=== PATIENT | male | born 1945 | race Caucasian/White ===

== ENCOUNTER 2021-12-18 08:00 | Outpatient (CLI) | payer MEDICARE | END 2021-12-18 23:59 | disposition home or self-care (01) | LOC: LAB.S 08:00 | PROVIDERS: ATTEND Physician Assistant | DX: U07.1 COVID-19 (principal) ==

== ENCOUNTER 2021-12-27 07:33 | Outpatient (CLI) | payer MEDICARE | END 2021-12-27 07:34 | disposition left against medical advice (07) | LOC: EMS 07:33 | DX: U07.1 COVID-19 (principal); R53.1 Weakness ==

== ENCOUNTER 2021-12-27 08:52 | Emergency (ER) | payer MEDICARE ==
--- OUTSIDE RECORDS SUMMARY | 2021-12-27 09:41 | EXTERNAL MEDICAL SUMMARY RPT | Continuity of Care Document ---
:1945 Author Organization [facility] Address [address] [place] [address] Phone Care Team Providers Name Role Phone PA-C Unavailable Unavailable Allergies No information. Encounters No information. Medications No information. Problems date description facility 20211218 Viral upper respiratory tract [facility] Primary Care & infection Ancillary Services [facility] 20211218 Never smoker [facility] Prim ahsan Care & Ancillary Services [facility] 20211218 Headache [facility] Prim [facility] & [facility] 20211218 Details of drug misuse behavior [facility] & Ancillary Services [facility] 20211218 Acute upper respiratory infections of [facility] Primary Care & unspecified site Ancillary Services [facility] 20211218 Acute upper [facility] infection, [facility] Primary Care & unspecified Ancillary Services [facility] 20211218 Headache, unspecified All 20211218 COVID19 Testing All 20211218 Alcohol use All Results test status date ordered by attending specimen mark e _2018NCoV_COVID-19_Lab unknown 20211218 unknown unknown unknown _Test_Result_Text_ Streptococcus_pyogenes unknown 20211218 unknown unknown unknown _DNA_Presence_in_Throat _by_NAA_with_probe_dete ction Microbial_identificati unknown 20211218 unknown unknown unknown on_kit_rapid_strep_meth od COVID-19_REFERENCE_TES unknown [id number] unknown unknown unknown T T unknown 20211218 unknown unknown unknown Streptococcus_pyogenes unknown 20211218 unknown unknown unknown _DNA_Presence_in_Throat _by_NAA_with_probe_dete ction Microbial_identificati unknown 20211218 unknown unknown unknown on_kit_rapid_strep_meth od facility observation status value reference units lab abnor mal line range code notes Walk-In _2019NCoV_CO unknown POSITIVE unknown _6659 unkn own unknown Clinic VID-19_Lab_Te [address]_Result_[facility] & t_ Ancillary Services [facility] Streptococcu unknown Neg unknown _6048 unknow n unknown Clinic s_pyogenes_DN 9-2 Primary A_Presence_in Care & _Throat_by_NA Ancillary A_with_probe_ Services detection [facility] Microbial_id unknown Neg unknown _3554 unknow n unknown Clinic entification_ Primary kit_rapid_str Care & ep_method Ancillary Services [facility] COVID-19_REF unknown POSITIVE unknown COVID unkn own unknown Clinic ERENCE_TEST 19.REF Primary Care & Ancillary Services [facility] T unknown POSITIVE unknown COVID unknown u nknown Clinic -19 Primary Care & Ancillary Services [facility] All Streptococcu unknown Neg unknown _6048 unknown unknown s_pyogenes_DN 9-2 A_Presence_in _Throat_by_NA A_with_probe_ detection All Microbial_id unknown Neg unknown _3554 unknown unknown entification_ kit_rapid_str ep_method Vital Signs date measurement value source 20211218 weight_standard 140 lb 20211218 weight_metric 63.5 kg 20211218 temperature_standard 98.5 F 20211218 temperature_metric 36.94 C 20211218 respiration_rate 15 /min 20211218 height_standard 70 in 20211218 height_metric 177.8 cm 20211218 heart_rate 88 /min 20211218 BP_systolic 118 mm[Hg] 20211218 BP_diastolic 56 mm[Hg] 20211218 BMI 20.16 kg/m2 20211218 weight_standard 140 lb 20211218 weight_metric 63.5 kg 20211218 temperature_standard 98.5 F 20211218 temperature_metric 36.94 C 20211218 respiration_rate 15 /min 20211218 height_standard 70 in 20211218 height_metric 177.8 cm 20211218 heart_rate 88 /min 20211218 BP_systolic 118 mm[Hg] 20211218 BP_diastolic 56 mm[Hg] 20211218 BMI 20.16 kg/m2
--- NOTE | 2021-12-27 09:49 | ED Physician Documentation ---
PD HPI URI - Stated complaint Stated Complaint: C+ NAUSEA/NO APPETITE - Chief complaint Chief Complaint: Resp - History obtained from History obtained from: Patient, Family - History of Present Illness Timing - onset: How many days ago (12) Timing duration: Days (12) Timing details: Gradual onset (he has had cough and congestion for about 2 weeks, with positive covid test on 8th. Has continued with some cough, which has increased the past few days. Has had worsening sore throat to point of unable to eat nor even sips of water, without severe pain. Poor PO intake for several days or more.), Still present Associated symptoms: Chills, Nasal congestion, Productive cough, NVD (not vomiting per se, but patient says is more that he is spitting up saliva when he tries to eat/drink, due to pain of swallowing.). No: Fever (initially with fever and chills, but those are gone now.) Contributing factors: Sick contact (had contact with COVID, but is almost 2 weeks after initial diagnosis.) Similar symptoms before: Has not had sx before Recently seen: Not recently seen (friend and patient say he has not been to a doctor for 11 years or such. He does not want to be in ER long and is motivated for discharge home after some meds and fluids.) Review of Systems Constitutional: reports: Chills, Myalgias, Fatigue, Weight Loss. denies: Fever Nose: reports: Rhinorrhea / runny nose, Congestion Throat: reports: Sore throat Cardiac: denies: Chest pain / pressure Respiratory: reports: Cough GI: reports: Nausea, Vomiting. denies: Abdominal Pain, Abdominal Swelling, Constipation, Diarrhea : denies: Dysuria, Frequency Musculoskeletal: denies: Neck pain, Back pain, Extremity swelling Neurologic: reports: Generalized weakness (unable to get up out of bed due to weakness the past couple of days.). denies: Near syncope PD PAST MEDICAL HISTORY - Past Medical History Cardiovascular: None Respiratory: None Musculoskeletal: Other (he has had an erosive growth left anterior thigh growing over the past year or more. ) - Present Medications Home Medications: Ambulatory Orders Medication Instructions Recorded Confirmed Albuterol Sulf [Ventolin Hfa 2 - 3 puffs INH Q4HR PRN #1 inhaler 12/27/21 Inhaler] Amox/Clav 875/125 [Augmentin] 1 each PO BID 5 Days #10 tablet 12/27/21 Doxycycline Hyclate 100 mg PO BID 5 Days #10 cap 12/27/21 Fluconazole [Diflucan] 100 mg PO Q3D #3 tablet 12/27/21 Lidocaine Viscous 2% [Xylocaine 5 ml PO Q4H PRN #100 ml 12/27/21 Viscous 2%] Ondansetron Odt [Zofran] 4 mg TL Q6H PRN #10 tablet 12/27/21 - Allergies Allergies/Adverse Reactions: Allergies Allergy/AdvReac Type Severity Reaction Status Date / Time No Known Drug Allergies Allergy Verified 12/27/21 09:20 PD ED PE NORMAL - Vitals Vital signs reviewed: Yes - General General: Alert and oriented X 3, No acute distress. No: Well developed/nourished (frail and thin appearance. ) - HEENT HEENT: No: Moist mucous membranes, Pharynx benign (tongue and pharynx with redness and some white plaque. lips with dry and some peeling. Pain with attemp lala swallowing sip water and drools it back out.) - Neck Neck: Supple, no meningeal sign, No adenopathy - Cardiac Cardiac: No murmur. No: RRR (tachycardic but regular. ) - Respiratory Respiratory: No respiratory distress. No: Clear bilaterally (coarse sounds at base, right especially. ) - Abdomen Abdomen: Soft, Non tender - Back Back: No CVA TTP - Derm Derm: Warm and dry. No: Normal color (pale) - Extremities Extremities: No edema, No calf tenderness / cord, Other (he reluctantly talks about left thigh skin growth and lets me only see top part. Bandaged and I lift part of it down. Large, raised, fungating edge growth with central superficial necrotic tissue. Not sure if goes into muscle. Purulent surface. Odorous c/w necrotic tissue. Size is entire thigh.) - Neuro Neuro: Alert and oriented X 3, No motor deficit, Normal speech Results - Vitals Vitals: Vital Signs - 24 hr 12/27/21 12/27/21 12/27/21 09:16 10:16 12:29 Temperature 36.8 C Heart Rate 125 H 117 H 100 Respiratory 24 20 22 Rate Blood Pressure 134/60 H 127/70 138/64 H O2 Saturation 94 92 99 12/27/21 12/27/21 12/27/21 13:47 14:46 15:42 Temperature Heart Rate 120 H 108 H 74 Respiratory 30 H 22 22 Rate Blood Pressure 150/77 H 108/76 O2 Saturation 100 100 12/27/21 17:53 Temperature 37.1 C Heart Rate 98 Respiratory 22 Rate Blood Pressure 114/82 H O2 Saturation 98 Oxygen O2 Source Room air - Labs Labs: Microbiology 12/27/21 13:23 Wound Culture - Preliminary Leg - Left Laboratory Tests 12/27/21 12/27/21 12/27/21 10:38 10:38 10:38 WBC 18.2 H RBC 4.08 L Hgb 8.7 L Hct 29.2 L MCV 71.6 L MCH 21.3 L MCHC 29.8 L RDW 17.9 H Plt Count 456 H MPV 10.0 Neut # (Auto) 15.9 H Lymph # (Auto) 0.7 L [place] # (Auto) 1.4 H Eos # (Auto) 0.0 Baso # (Auto) 0.0 Absolute Nucleated RBC 0.00 Nucleated RBC % 0.0 Sodium 145 Potassium 3.8 Chloride 105 Carbon Dioxide 26 Anion Gap 14.0 H BUN 35 H Creatinine 0.9 Estimated GFR (MDRD) 82 L Glucose 138 H Calcium 9.6 Magnesium 2.3 Total Bilirubin 0.6 AST 13 ALT 17 Alkaline Phosphatase 72 B-Natriuretic Peptide 33 Total Protein 8.3 H Albumin 2.8 L Globulin 5.5 H Albumin/Globulin Ratio 0.5 L Lipase 24 Nasal Adenovirus (PCR) Nasal B. parapertussis DNA (PCR) Nasal Coronavir 229E PCR Nasal Coronavir HKU1 PCR Nasal Coronavir NL63 PCR Nasal Coronavir OC43 PCR Nasal Enterovir/Rhinovir PCR Nasal Influenza B PCR Nasal Influenza A PCR Nasal Parainfluen 1 PCR Nasal Parainfluen 2 PCR Nasal Parainfluen 3 PCR Nasal Parainfluen 4 PCR Nasal RSV (PCR) Nasal B.pertussis DNA PCR Nasal C.pneumoniae (PCR) [place] Human Metapneumo PCR Nasal M.pneumoniae (PCR) Nasal SARS-CoV-2 (PCR) Group A Strep Rapid 12/27/21 12/27/21 10:38 14:45 WBC RBC Hgb Hct MCV MCH MCHC RDW Plt Count MPV Neut # (Auto) Lymph # (Auto) [place] # (Auto) Eos # (Auto) Baso # (Auto) Absolute Nucleated RBC Nucleated RBC % Sodium Potassium Chloride Carbon Dioxide Anion Gap BUN Creatinine Estimated GFR (MDRD) Glucose Calcium Magnesium Total Bilirubin AST ALT Alkaline Phosphatase B-Natriuretic Peptide Total Protein Albumin Globulin Albumin/Globulin Ratio Lipase Nasal Adenovirus (PCR) NOT DETECTED Nasal B. parapertussis DNA (PCR) NOT DETECTED Nasal Coronavir 229E PCR NOT DETECTED Nasal Coronavir HKU1 PCR NOT DETECTED Nasal Coronavir NL63 PCR NOT DETECTED Nasal Coronavir OC43 PCR NOT DETECTED Nasal Enterovir/Rhinovir PCR NOT DETECTED Nasal Influenza B PCR NOT DETECTED Nasal Influenza A PCR NOT DETECTED Nasal Parainfluen 1 PCR NOT DETECTED Nasal Parainfluen 2 PCR NOT DETECTED Nasal Parainfluen 3 PCR NOT DETECTED Nasal Parainfluen 4 PCR NOT DETECTED Nasal RSV (PCR) NOT DETECTED Nasal B.pertussis DNA PCR NOT DETECTED Nasal C.pneumoniae (PCR) NOT DETECTED [place] Human Metapneumo PCR NOT DETECTED Nasal M.pneumoniae (PCR) NOT DETECTED Nasal SARS-CoV-2 (PCR) DETECTED A Group A Strep Rapid Negative - Rads (name of study) chest xray Radiology: Prelim report reviewed (bilateral opacities right more than left, c/w pneumonia. CT recommended if wish to exclude tumors.), See rad report chest/abd/pelvis CT Radiology: Prelim report reviewed (again demonstrated bilateral pneumonia. No masses. Abd showing no acute process. large rectal stool. ), See rad report PD MEDICAL DECISION MAKING - ED course Complexity details: reviewed results (he is anemic. states the patient has thigh skin lesion that drips blood often, so she believes it is chronic blood loss. ), re-evaluated patient (he is able to take sips of water and then small bites crackers. Mouth feeling less painful. He has some color. He walked down huff with walker. He strongly wants to go home, stating he will not stay in hospital. I feel he is stronger/hydrated enough right now to maybe take care at home.), considered differential (frail, dehydrated. oral sores/redness likely thrush appearing. Has pneumonia. Seem very ill and that was even before he told about his thigh lesion.), d/w patient Departure - Departure Disposition: 01 Home, Self Care Clinical Impression: General weakness, Dehydration, Yeast pharyngitis, Pneumonia, Skin lesion, Odynophagia Condition: Stable Instructions: ED Pneumonia Adult Follow-Up: [facility] [Provider Group] Prescriptions: Albuterol Sulf [Ventolin Hfa Inhaler] 2 - 3 puffs INH Q4HR PRN #1 inhaler PRN Reason: Shortness Of Air/Wheezing Amox/Clav 875/125 [Augmentin] 1 each PO BID 5 Days #10 tablet Fluconazole [Diflucan] 100 mg PO Q3D #3 tablet Doxycycline Hyclate 100 mg PO BID 5 Days #10 cap Lidocaine Viscous 2% [Xylocaine Viscous 2%] 5 ml PO Q4H PRN #100 ml PRN Reason: Pain Ondansetron Odt [Zofran] 4 mg TL Q6H PRN #10 tablet PRN Reason: Nausea / Vomiting Comments: Small frequent fluids and liquid diet initially with good calories such as Ensure or or protein drinks. Your throat is red and irritated and you have had the pain with swallowing. I believe you likely have a yeast pharyngitis (thrush) by the appearance. He also have pneumonia on chest x-ray. Your COVID test is still positive but you think you have likely developed a secondary bacterial pneumonia. We will treat this with Augmentin and doxycycline antibiotics twice daily for the next 5 days. For the throat, use Benadryl liquid every 4-6 hours if needed for discomfort of swallowing. You can add lidocaine numbing medicine to that to help further with the throat pain. Use the albuterol inhaler 2 to 3 puffs 4 times a day regularly for the next week at least. This will try to improve on your breathing. Ondansetron if needed for nausea. Regarding your leg wound, continue with cleaning it normally with soap and water and showers. Keep it dressed as you have been doing. We did do a culture of the area and we will see if it grows a bacteria that needs antibiotics different from what we are using for your pneumonia. Your next step on that would initially be to get a biopsy of it to see the type of tumor growth it is. I gave the number for [facility] in [place] as a starting point. Also call to initiate a new primary care provider. You could try [facility] [place] and their phone number is [phone]. I believe they are taking new patients currently. Recheck if not improved well over the next few days and return if not or worsening. I sent your prescriptions to the [facility] pharmacy here in [place] which should be open until 6 PM today. Discharge Date/Time: 12/27/21 17:45
[2021-12-27] MEDS ORDERED: SODIUM CHLORIDE 0.9% 1,000 ML IV STA ×3 (10:12→12:58)
[2021-12-27] MEDS ORDERED: ONDANSETRON 4 MG/2 ML VIAL IVP STA (10:12)
[2021-12-27] MEDS ORDERED: HYDROmorphone 0.5 MG/0.5 ML SYRINGE IVP STA (10:13)
[2021-12-27] MEDS ORDERED: FLUCONAZOLE 200 MG/100 ML 100 ML IV ONE (10:13)
[2021-12-27] MEDS ORDERED: FAMOTIDINE 20 MG/2 ML VIAL IVP STA (10:13)
[2021-12-27] MEDS ORDERED: diphenhydrAMINE ELIXIR 25 MG/10 ML UDC PO STA (10:16)
--- NOTE | 2021-12-27 10:35 | XRAY Report ---
PROCEDURE: Chest 1 View X-Ray INDICATIONS: chest pain TECHNIQUE: One view of the chest was acquired. COMPARISON: None FINDINGS: Surgical changes and devices: None. Lungs and pleura: Patchy bilateral areas of pulmonary opacities are present most severe in the right base. Mediastinum: Mediastinal contours appear normal. Heart size is normal. Bones and chest wall: No suspicious bony lesions. Overlying soft tissues appear unremarkable. IMPRESSION: Bilateral pulmonary opacities most severe on the right most suggestive of pneumonia. Recommend interv al follow-up after appropriate therapy to document resolution and exclude presence of underlying mass lesions. Reviewed by: Mey Oconnor MD on 12/27/2021 10:34 AM PDT Approved by: Mey Oconnor MD on 12/27/2021 10:34 AM PDT Station ID: [id number]
[2021-12-27 10:46] LABS: BASOPHILS % (AUTO) 0.2 %; HCT - HEMATOCRIT 29.2 % (42.0-52.0); HGB - HEMOGLOBIN 8.7 g/dL (14.0-18.0); LYMPHOCYTES # (AUTO) 0.7 10^3/uL (1.5-3.5); LYMPHOCYTES % (AUTO) 3.6 %; MEAN CORPUSCULAR HEMOGLOBIN 21.3 pg (27.0-31.0); MEAN CORPUSCULAR HGB CONC 29.8 g/dL (32.0-36.0); MEAN CORPUSCULAR VOLUME 71.6 fL (80.0-94.0); MONOCYTES # (AUTO) 1.4 10^3/uL (0.0-1.0); MONOCYTES % (AUTO) 7.9 %; NEUTROPHILS # (AUTO) 15.9 10^3/uL (1.5-6.6); NEUTROPHILS % (AUTO) 87.6 %; PLT - PLATELET COUNT 456 10^3/uL (130-450); RED BLOOD COUNT 4.08 10^6/uL (4.70-6.10); RED CELL DISTRIBUTION WIDTH 17.9 % (12.0-15.0); WHITE BLOOD COUNT 18.2 x10^3/uL (4.8-10.8)
[2021-12-27 10:55] LABS: RAPID STREP SCREEN Negative (Negative)
[2021-12-27 10:59] LABS: ALBUMIN 2.8 g/dL (3.2-5.5); ALBUMIN/GLOBULIN RATIO 0.5 (1.0-2.2); BILIRUBIN,TOTAL 0.6 mg/dL (0.2-1.0); CALCIUM 9.6 mg/dL (8.5-10.3); CREATININE 0.9 mg/dL (0.6-1.2); MAGNESIUM 2.3 mg/dL (1.7-2.8); POTASSIUM 3.8 mmol/L (3.5-5.0); TOTAL PROTEIN 8.3 g/dL (6.7-8.2)
[2021-12-27] MEDS ORDERED: IOVERSOL 320 100 ML VIAL IVP ONE ×2 (11:48→12:23)
--- NOTE | 2021-12-27 12:51 | CT Report ---
PROCEDURE: CHEST W INDICATIONS: cough/dyspnea/ abn chest xray CONTRAST: IV CONTRAST: Optiray 320 ml: 1010 PO CONTRAST: *NO PO CONTRAST TECHNIQUE: After the administration of intravenous contrast, 1 mm axial images were acquired from the pulmonary apices through the posterior costophrenic angles. Axial 5 mm soft tissue kernel reconstructions were performed as well as 8 mm axial MIP and coronal and sagittal 5 mm reformations. For radiation dose reduction, the following was used: automated exposure control, adjustment of mA and/or kV according to patient size. COMPARISON: None. FINDINGS: Image quality: Excellent. Lungs and pleura: Extensive spiculated densities, predominantly right-sided, and mostly in the right lower lobe, but also in the lateral segment of the right middle lobe, and to a lesser extent in the l eft lower lobe likely represent bronchopneumonia. There is more confluent consolidation in the extrem e right lung base There is fluid present in multiple basilar bronchi on the left. Findings likely rep resent evidence of recurrent aspiration pneumonia. No pleural effusions or pneumothorax. Central and peripheral airways are patent and normal in caliber. Mediastinum: Heart size is normal. No pericardial effusion. No mediastinal or hilar adenopathy by size criteria. Thoracic aorta and central pulmonary arteries are normal in size. Esophagus is henry l in caliber. No hiatal hernia. Bones and chest wall: No suspicious bony lesions. No vertebral body compression fractures. No axil bernice or supraclavicular adenopathy by size criteria. The thyroid is normal in size and there are no incidental findings.. Abdomen: Visualized upper abdominal solid organs appear normal. Upper abdominal bowel loops are nor mal in caliber. IMPRESSION: 1. There is bilateral pneumonia, right greater than left, in a pattern consistent with bronchopneumon ia. 2. Fluid present in multiple left-sided bronchial structures is highly suggestive of recurrent aspira tion pneumonia. Comment: Progress films are recommended until clear. CLINICAL RECOMMENDATION STATEMENTS: In patients <35 years with an ITN detected on CT, MRI, or extrathyroidal ultrasound, the Committee re commends further evaluation with dedicated thyroid ultrasound if the nodule is "e1 cm and has no susp icious imaging features, and if the patient has normal life expectancy. In patients "e35 years with an ITN detected on CT, MRI, or extrathyroidal ultrasound, the Committee r ecommends further evaluation with dedicated thyroid ultrasound if the nodule is "e1.5 cm and has no s uspicious imaging features, and if the patient has normal life expectancy. (ACR, 2014) Reviewed by: Calderon Cano MD on 12/27/2021 12:50 PM PDT Approved by: Calderon Cano MD on 12/27/2021 12:50 PM PDT Station ID: [id number]
--- NOTE | 2021-12-27 12:57 | CT Report ---
PROCEDURE: Abdomen/Pelvis W INDICATIONS: upper abd pain/vomiting/unable to swallow CONTRAST: IV CONTRAST: Optiray 320 ml: 1010 PO CONTRAST: *NO PO CONTRAST TECHNIQUE: After the administration of intravenous contrast, 5 mm thick sections acquired from the diaphragms to the symphysis. 5 mm thick coronal and sagittal reformats were acquired. For radiation dose reducti on, the following was used: automated exposure control, adjustment of mA and/or kV according to brooklynn ent size. COMPARISON: CT chest from the same date FINDINGS: Image quality: Excellent. ABDOMEN: Lung bases: Bibasilar pneumonia, right much greater than left. Fluid present in multiple left basilar bronchi suggesting aspiration. Heart size is normal. Solid organs: Liver and spleen are normal in size and enhancement. Gallbladder is unremarkable. Bi liary system is non dilated. Pancreas enhances normally. No adrenal nodules. Kidneys demonstrate n ormal size and enhancement, without hydronephrosis. 2 mm nonobstructing left middle pole renal stone . Peritoneum and bowel: Distended rectum filled with fecal debris. Sigmoid diverticulosis without evide nce of diverticulitis. Nodes and vessels: No retroperitoneal or mesenteric adenopathy by size criteria. Aorta and inferior vena cava are normal in size. Miscellaneous: No ventral hernias. PELVIS: Genitourinary: Bladder wall thickness is normal. Miscellaneous: No inguinal hernias or adenopathy. Bones: No suspicious bony lesions. No vertebral body compression fractures. Lumbar degenerative ch gayla. Right facet hypertrophy at L4-L5 results in severe stenosis of the right side of the canal. Ext ensive multilevel facet arthropathy. IMPRESSION: 1. Bibasilar pneumonia, right much greater than left, likely representing aspiration pneumonia. 2. Large amount of rectal fecal debris. 3. Sigmoid diverticulosis. 4. No evidence of acute abdominal process. 5. Left nephrolithiasis. 6. Incidental note is made of the presence of diffuse lumbar degenerative change with extensive facet arthropathy. Right facet arthropathy at L4-L5 results in severe narrowing of the right side of the s asher canal. Reviewed by: Calderon Cano MD on 12/27/2021 12:55 PM PDT Approved by: Calderon Cano MD on 12/27/2021 12:55 PM PDT Station ID: [id number]
[2021-12-27] MEDS ORDERED: AZITHROMYCIN INJ 500 MG in SODIUM CHLORIDE 0.9% 250 ML IV STA (12:58)
[2021-12-27] MEDS ORDERED: cefTRIAXone 1 GM VIAL IVP STA (12:58)
[2021-12-27] MEDS ORDERED: ALBUTEROL 1 PUFF INH STA (15:21)
[2021-12-27 16:07] LABS: CORONAVIRUS 229E-RESP PCR NOT DETECTED; CORONAVIRUS HKU1-RESP PCR NOT DETECTED; CORONAVIRUS NL63-RESP PCR NOT DETECTED; CORONAVIRUS OC43-RESP PCR NOT DETECTED
[2021-12-27 16:08] LABS: B. PARAPERTUSSIS- RESP PCR PAN NOT DETECTED; B. PERTUSSIS- RESP PCR PANEL NOT DETECTED; C. PNEUMONIAE- RESP PCR PANEL NOT DETECTED; HUMAN METAPNEUMOVIRUS NOT DETECTED; INFLUENZA A- RESP PCR PANEL NOT DETECTED; INFLUENZA B - RESP PCR PANEL NOT DETECTED; M. PNEUMONIAE- RESP PCR PANEL NOT DETECTED; PARAINFLUENZA VIRUS 1 NOT DETECTED; PARAINFLUENZA VIRUS 2 NOT DETECTED; PARAINFLUENZA VIRUS 3 NOT DETECTED; PARAINFLUENZA VIRUS 4 NOT DETECTED; RHINOVIRUS/ENTEROVIRUS NOT DETECTED; RSV- RESP PCR PANEL NOT DETECTED; SARS-CoV-2 -RESP PCR PANEL DETECTED
[2021-12-27 17:55] VITALS: BP 114/82
--- NOTE | 2021-12-30 14:39 | ED Physician Documentation ---
ED Addendum - Addendum Addendum: 12/30/21 14:39 Culture reviewed, doxycycline can probably be discontinued given that the wound culture growing Klebsiella pneumonia a and staff aureus is sensitive to Augmentin and the staff isolate should also be sensitive to Augmentin since it is surprisingly sensitive to penicillin alone. Note to nurse to call patient and discontinue doxycycline.
== END 2021-12-27 17:45 | disposition home or self-care (01) ==
LOC: ED 08:52
DX: U07.1 COVID-19 (principal); J15.0 Pneumonia due to Klebsiella pneumoniae; E86.0 Dehydration; J02.8 Acute pharyngitis due to other specified organisms; R13.10 Dysphagia, unspecified
CPT/HCPCS: 36415; 71045; 71260; 74177; 80053; 83690; 83735; 83880; 85025; 87070; 87077; 87181; 87205; 87430; 87633; 93005; 94640; 96361; 96365; 96366; 96367; 96375; 99283; 99285; A9270; J1170; Q9967

== ENCOUNTER 2022-01-01 10:44 | Emergency (ER) | payer MEDICARE ==
--- OUTSIDE RECORDS SUMMARY | 2022-01-01 11:03 | EXTERNAL MEDICAL SUMMARY RPT | Continuity of Care Document ---
:1945 Author Organization [facility] Address [address] [place] [address] Phone Care Team Providers Name Role Phone PA-C Unavailable Unavailable PA-C Unavailable Unavailable Allergies No information. Encounters No information. Medications date description facility 20220101 fluconazole [facility] Problems date description facility 20220101 Pneumonia, unspecified organism [facility] ab 20220101 Other dysphagia [facility] 20220101 Other and unspecified mycoses [facility] ab 20220101 Never smoker [facility] 20220101 Loss of weight [facility] ab 20220101 Fungal pneumonia [facility] ab 20220101 Dysphagia, unspecified [facility] 20220101 Difficulty swallowing [facility] ab 20220101 Details of drug misuse behavior [facility] 20220101 Anemia, unspecified [facility] 20220101 Anemia [facility] ab 20220101 Alcohol use [facility] ab 20220101 Abnormal weight loss [facility] ab 20211218 Alcohol use [facility] ab 20211218 Viral upper respiratory tract [facility] 20211218 Never smoker [facility] ab 20211218 Details of drug misuse behavior [facility] 20211218 Acute upper respiratory infections of [facility] unspecified site [facility] ab 20211218 Headache, unspecified All 20211218 Headache All 20211218 COVID19 Testing All 20211218 Acute upper respiratory infection, All unspecified Results test status date ordered by attending specimen mark e Hemoglobin_Mass_volume unknown 20220101 unknown unknown unknown _in_Blood hemoglobin_blood unknown 20220101 unknown unknown unknow n _2018NCoV_COVID-19_Lab unknown 20211218 unknown unknown unknown _Test_Result_Text_ Streptococcus_pyogenes unknown 20211218 unknown unknown unknown _DNA_Presence_in_Throat _by_NAA_with_probe_dete ction Microbial_identificati unknown 20211218 unknown unknown unknown on_kit_rapid_strep_meth od COVID-19_REFERENCE_TES unknown 20211218 unknown unknown unknown T T unknown 20211218 unknown unknown unknown _2018NCoV_COVID-19_Lab unknown 20211218 unknown unknown unknown _Test_Result_Text_ Streptococcus_pyogenes unknown 20211218 unknown unknown unknown _DNA_Presence_in_Throat _by_NAA_with_probe_dete ction Microbial_identificati unknown 20211218 unknown unknown unknown on_kit_rapid_strep_meth od COVID19_REFERENCE_TES unknown 20211218 unknown unknown unknown T T unknown 20211218 unknown unknown unknown Streptococcus_pyogenes unknown 20211218 unknown unknown unknown _DNA_Presence_in_Throat _by_NAA_with_probe_dete ction Microbial_identificati unknown 20211218 unknown unknown unknown on_kit_rapid_strep_meth od facility observation status value reference units lab abnor mal line range code notes [facility] Hemoglobin_M unknown 7.9 unknown g/dL _718- unknow n unknown Clinic ass_volume_in 7 Primary [facility] hemoglobin_b unknown 7.9 unknown g/dL _65 unknow n unknown Clinic lood [facility] _2018NCoV_CO unknown POSITIVE unknown _6659 unkn own unknown [...] T unknown POSITIVE unknown COVID unknown u [facility] -19 [facility] _2019NCoV_CO unknown POSITIVE unknown _6659 unkn [...] T unknown POSITIVE unknown COVID unknown u [facility] -19 [facility] Services [...] BP_diastolic 56 mm[Hg] 20211218 BMI 20.16 kg/m2 20220101 weight_standard 116 lb 20220101 weight_metric 52.62 kg 20220101 temperature_standard 97.6 F 20220101 temperature_metric 36.44 C 20220101 respiration_rate 16 /min 20220101 height_standard 70 in 20220101 height_metric 177.8 cm 20220101 heart_rate 122 /min 20220101 BP_systolic 128 mm[Hg] 20220101 BP_diastolic 71 mm[Hg] 20220101 BMI 16.70 kg/m2
[2022-01-01 11:41] LABS: BASOPHILS % (AUTO) 0.2 %; EOSINOPHILS # (AUTO) 0.1 10^3/uL (0.0-0.7); EOSINOPHILS % (AUTO) 0.9 %; HCT - HEMATOCRIT 28.5 % (42.0-52.0); LYMPHOCYTES # (AUTO) 1.5 10^3/uL (1.5-3.5); LYMPHOCYTES % (AUTO) 10.7 %; MEAN CORPUSCULAR HEMOGLOBIN 20.8 pg (27.0-31.0); MEAN CORPUSCULAR HGB CONC 28.1 g/dL (32.0-36.0); MEAN PLATELET VOLUME 9.5 fL (7.4-11.4); MONOCYTES # (AUTO) 0.7 10^3/uL (0.0-1.0); MONOCYTES % (AUTO) 5.2 %; NEUTROPHILS # (AUTO) 11.4 10^3/uL (1.5-6.6); NEUTROPHILS % (AUTO) 82.4 %; PLT - PLATELET COUNT 632 10^3/uL (130-450); RED BLOOD COUNT 3.85 10^6/uL (4.70-6.10); RED CELL DISTRIBUTION WIDTH 18.7 % (12.0-15.0); WHITE BLOOD COUNT 13.9 x10^3/uL (4.8-10.8)
[2022-01-01 12:21] LABS: ALBUMIN 2.6 g/dL (3.2-5.5); ALBUMIN/GLOBULIN RATIO 0.5 (1.0-2.2); BILIRUBIN,TOTAL 0.3 mg/dL (0.2-1.0); CALCIUM 9.4 mg/dL (8.5-10.3); POTASSIUM 3.4 mmol/L (3.5-5.0); TOTAL PROTEIN 7.8 g/dL (6.7-8.2)
[2022-01-01] MEDS ORDERED: SODIUM CHLORIDE 0.9% 1,000 ML IV STA (12:48)
[2022-01-01] MEDS ORDERED: LIDOCAINE VISCOUS 2% 15 ML UDC MM STA (12:48)
[2022-01-01] MEDS ORDERED: AMOX/CLAV 200 MG/28.5 MG/5 ML SYRINGE PO STA (12:53)
[2022-01-01 13:06] LABS: INR 1.4 (0.8-1.2); PT - PROTHROMBIN TIME 15.9 secs (9.9-12.6)
--- NOTE | 2022-01-01 13:22 | ED Physician Documentation ---
History of Present Illness - Stated complaint Stated Complaint: SWALLOWING DIFFICULTY - Chief complaint Chief Complaint: Heent - Additonal information Additional information: Patient is 76-year-old male presenting to the emergency department with generalized weakness and difficulty swallowing. Recent evaluation in the emergency department where he was ultimately found to have Klebsiella pneumonia as well as likely oropharyngeal fungal infection. Was discharged on course of Augmentin and fluconazole. Family reports that they attempted to give him the viscous lidocaine he had also been prescribed however he was intolerant to this. Has had only limited success taking his medications. Was seen at clinic today and referred to the emergency department. Clinic also reported that he had a slight worsening of his chronic anemia. Review of Systems Ten Systems: 10 systems reviewed and negative Constitutional: reports: Fatigue. denies: Fever Eyes: denies: Loss of vision Ears: denies: Loss of hearing Nose: denies: Rhinorrhea / runny nose Throat: reports: Sore throat Cardiac: denies: Chest pain / pressure Respiratory: denies: Dyspnea GI: denies: Abdominal Pain : denies: Dysuria Skin: denies: Rash Musculoskeletal: denies: Neck pain Neurologic: denies: Generalized weakness Psychiatric: denies: Depressed Endocrine: denies: Polydypsia Immunocompromised: denies: Immunocompromised PD PAST MEDICAL HISTORY - Past Medical History Past Medical History: Yes Cardiovascular: None Respiratory: None Neuro: None Endocrine/Autoimmune: None GI: None : None HEENT: None Psych: None Musculoskeletal: Osteoarthritis, Other Derm: None - Past Surgical History Past Surgical History: No - Present Medications Home Medications: Ambulatory Orders Medication Instructions Recorded Confirmed Albuterol Sulf [Ventolin Hfa 2 - 3 puffs INH Q4HR PRN #1 inhaler 12/27/21 Inhaler] Amox/Clav 875/125 [Augmentin] 1 each PO BID 5 Days #10 tablet 12/27/21 01/01/22 Fluconazole [Diflucan] 100 mg PO Q3D #3 tablet 12/27/21 01/01/22 Amoxicillin/Potassium Clav 400 mg PO BID 7 Days #70 ml 01/01/22 [Amox-Clav 400-57 mg/5 ml Susp] Nystatin [Mycostatin] 5 ml PO QID 14 Days #280 ml 01/01/22 - Allergies Allergies/Adverse Reactions: Allergies Allergy/AdvReac Type Severity Reaction Status Date / Time No Known Drug Allergies Allergy Verified 12/27/21 09:20 - Social History Does the pt smoke?: No Smoking Status: Never smoker Does the pt drink ETOH?: Yes ETOH Use: Beer Does the pt have substance abuse?: No - Immunizations Immunizations are current?: No Immunizations: TDAP >10years/unknown, Other immun not current PD ED PE NORMAL - Vitals Vital signs reviewed: Yes (Sinus tachycardia) - General General: Alert and oriented X 3, No acute distress - HEENT HEENT: Atraumatic - Neck Neck: Supple, no meningeal sign - Cardiac Cardiac: RRR - Respiratory Respiratory: No respiratory distress - Abdomen Abdomen: Normal bowel sounds - Male Male : Deferred - Rectal Rectal: Deferred - Back Back: No CVA TTP - Derm Derm: Normal color - Extremities Extremities: No deformity - Neuro Neuro: Alert and oriented X 3, pressurizer 2-12 intact, No motor deficit, No sensory deficit - Psych Psych: Normal mood Results - Vitals Vitals: Vital Signs - 24 hr 01/01/22 01/01/22 01/01/22 10:50 12:36 14:10 Temperature 36.6 C Heart Rate 113 H 110 H 103 H Respiratory 18 24 21 Rate Blood Pressure 127/53 L 134/74 H 129/70 O2 Saturation 98 99 Oxygen O2 Source Room air - EKG (time done) 1311 Rate: Rate (enter#) (105) Rhythm: NSR [place]: Normal Intervals: Normal [place] QRS: Normal Ischemia: Normal ST segments, Non specific changes Computer interpretation: Agree with computer - Labs Labs: Laboratory Tests 01/01/22 01/01/22 01/01/22 11:30 11:30 11:30 WBC 13.9 H RBC 3.85 L Hgb 8.0 L Hct 28.5 L MCV 74.0 L MCH 20.8 L MCHC 28.1 L RDW 18.7 H Plt Count 632 H MPV 9.5 Neut # (Auto) 11.4 H Lymph # (Auto) 1.5 Hawkins # (Auto) 0.7 Eos # (Auto) 0.1 Baso # (Auto) 0.0 Absolute Nucleated RBC 0.00 Nucleated RBC % 0.0 PT 15.9 H INR 1.4 H Sodium 154 H Potassium 3.4 L Chloride 112 H Carbon Dioxide 25 Anion Gap 17.0 H BUN 33 H Creatinine 1.0 Estimated GFR (MDRD) 72 L Glucose 122 H Lactic Acid Calcium 9.4 Total Bilirubin 0.3 AST 17 ALT 17 Alkaline Phosphatase 73 Troponin I High Sens Total Protein 7.8 Albumin 2.6 L Globulin 5.2 H Albumin/Globulin Ratio 0.5 L Lipase 24 01/01/22 01/01/22 01/01/22 13:54 13:54 13:54 WBC 12.2 H RBC 3.37 L Hgb 7.2 L Hct 24.4 L MCV 72.4 L MCH 21.4 L MCHC 29.5 L RDW 18.6 H Plt Count 571 H MPV 9.7 Neut # (Auto) 9.9 H Lymph # (Auto) 1.4 L Hawkins # (Auto) 0.8 Eos # (Auto) 0.1 Baso # (Auto) 0.0 Absolute Nucleated RBC 0.00 Nucleated RBC % 0.0 PT INR Sodium Potassium Chloride Carbon Dioxide Anion Gap BUN Creatinine Estimated GFR (MDRD) Glucose Lactic Acid 1.5 Calcium Total Bilirubin AST ALT Alkaline Phosphatase Troponin I High Sens 3.3 Total Protein Albumin Globulin Albumin/Globulin Ratio Lipase PD MEDICAL DECISION MAKING - ED course Complexity details: reviewed results, re-evaluated patient, d/w patient, d/w family ED course: Patient is 76-year-old male presenting to the emergency department with dysphagia and poor tolerance for medications at home. Has been able to tolerate some fluids at home. Family expresses concern about increasing weakness. Afebrile, did arrive to the emergency department with a low level sinus tachycardia but was otherwise hemodynamically stable. No respiratory distress. Abdominal exam benign. Comprehensive labs obtained demonstrated a improvement of the patient's Previous leukocytosis. Additionally patient was noted to have a very mild worsening of his chronic anemia with hemoglobin 8 down from 8.7 from a few days ago. He was given IV fluids in the emergency department and treated with viscous lidocaine which he tolerated well. He also tolerated an oral dose of Augmentin elixir here in the emergency department with ease. Chart review does demonstrate that he was diagnosed with pneumonia with positive cultures for Klebsiella susceptible to Augmentin. He was evaluated in the emergency department for several hours, found to be resting comfortably and in no acute distress. He was explicitly offered hospitalization however he again declines this stating that he wishes to continue treatment at home. Will discharge at this time with oral elixir Augmentin, nystatin swish and swallows. Otherwise clear return precautions and follow-up instructions given prior to discharge Departure - Departure Disposition: 01 Home, Self Care Clinical Impression: Klebsiella pneumonia, Pharyngitis Prescriptions: Amoxicillin/Potassium Clav [Amox-Clav 400-57 mg/5 ml Susp] 400 mg PO BID 7 Days #70 ml Nystatin [Mycostatin] 5 ml PO QID 14 Days #280 ml Comments: Thank you for allowing us to care for you today at [facility]. I am glad that you are feeling somewhat better. Please continue to use the viscous lidocaine you are previously prescribed. However I do recommend avoiding dilution and Benadryl syrup or cream. I will be discharging with a course of a liquid oral antibiotic as well as an oral Mycostatin swish and swallow suspension for the fungal infection in your throat. Please follow-up with your primary care doctor soon as possible. If it anytime you have any new or worsening symptoms please not hesitate to return.
[2022-01-01 14:01] LABS: BASOPHILS % (AUTO) 0.2 %; EOSINOPHILS # (AUTO) 0.1 10^3/uL (0.0-0.7); EOSINOPHILS % (AUTO) 0.9 %; HCT - HEMATOCRIT 24.4 % (42.0-52.0); HGB - HEMOGLOBIN 7.2 g/dL (14.0-18.0); LYMPHOCYTES # (AUTO) 1.4 10^3/uL (1.5-3.5); LYMPHOCYTES % (AUTO) 11.4 %; MEAN CORPUSCULAR HEMOGLOBIN 21.4 pg (27.0-31.0); MEAN CORPUSCULAR HGB CONC 29.5 g/dL (32.0-36.0); MEAN CORPUSCULAR VOLUME 72.4 fL (80.0-94.0); MEAN PLATELET VOLUME 9.7 fL (7.4-11.4); MONOCYTES # (AUTO) 0.8 10^3/uL (0.0-1.0); MONOCYTES % (AUTO) 6.3 %; NEUTROPHILS # (AUTO) 9.9 10^3/uL (1.5-6.6); NEUTROPHILS % (AUTO) 80.7 %; PLT - PLATELET COUNT 571 10^3/uL (130-450); RED BLOOD COUNT 3.37 10^6/uL (4.70-6.10); RED CELL DISTRIBUTION WIDTH 18.6 % (12.0-15.0); WHITE BLOOD COUNT 12.2 x10^3/uL (4.8-10.8)
[2022-01-01 15:32] VITALS: BP 142/64
== END 2022-01-01 15:46 | disposition home or self-care (01) ==
LOC: ED 10:44
DX: J15.0 Pneumonia due to Klebsiella pneumoniae (principal); J02.9 Acute pharyngitis, unspecified
CPT/HCPCS: 36415; 80053; 83605; 83690; 84484; 85025; 85610; 93005; 99282; 99283; A9270

== ENCOUNTER 2022-02-06 09:33 | Day surgery (SDC) | payer MEDICARE ==
[~2022-02-06 09:33] MED LIST: BRIMONIDINE 0.2% OPHTH DROPS 5 ML ONE; BSS/LIDOCAINE/EPINEPHRINE 1 ML VIAL ONE; CYCLOPENTOLATE 1% OPHTH DROPS 2 ML ONE; EPINEPHrine 1 MG/ML AMP ONE; KETOROLAC 0.45% OPHTH DROPS ONE; PHENYLEPHRINE 2.5% OPHTH 2 ML DROPS ONE; PROPARACAINE 0.5% OPHTH DROPS 15 ML ONE; TIMOLOL 0.5% OPHTH DROPS ONE
[2022-02-06] MEDS ORDERED: LACTATED RINGERS 1,000 ML IV ONE ×2 (10:05→11:45)
--- NOTE | 2022-02-06 10:51 | ANESTHESIA ---
Pre-Anesthesia VS, & Labs - Diagnosis R cataract - Procedure R PhacoIOL Vital Signs: Temp Pulse Resp BP Pulse Ox 36.9 C 84 10 L 119/69 100 02/06/22 09:48 02/06/22 09:48 02/06/22 09:48 02/06/22 09:48 02/06/22 09:48 Height: 5 ft 10 in Weight (kg): 57 kg Body Mass Index: 18.0 BMI Classification: Underweight - NPO >8 hours Home Medications and Allergies Home Medications: Ambulatory Orders No Known Home Medications 02/06/22 No Known Home Medications 02/06/22 Allergies/Adverse Reactions: Allergies Allergy/AdvReac Type Severity Reaction Status Date / Time No Known Drug Allergies Allergy Verified 12/27/21 09:20 Anes History & Medical History - Anesthetic History Anesthesia Complications: reports: No previous complications Family history of Anesthesia Complications: Denies Family history of Malignant Hyperthermia: Denies - Medical History Cardiovascular: reports: None Pulmonary: reports: None Gastrointestinal: reports: None Urinary: reports: None Neuro: reports: None Musculoskeletal: reports: Osteoarthritis Endocrine/Autoimmune: reports: None Blood Disorders: reports: None Skin: reports: None Smoking Status: Never smoker Psychosocial: reports: Alcohol (ETOH Daily) Exam General: Alert, Oriented x3, Cooperative Dental: WNL Mouth Openin Fingerbreadth Neck Mobility: Normal Mallampati classification: I Thyromental Distance: 4-6 cm Respiratory: Lungs clear Cardiovascular: Regular rate Plan Anesthesia Type: MAC Consent for Procedure(s) Verified and Reviewed: Yes Code Status: Attempt Resuscitation ASA classification: 2-Mild systemic disease Is this case an emergency?: No
[2022-02-06] MEDS ORDERED: MIDAZOLAM 2 MG/2 ML VIAL ONE (10:54)
[2022-02-06] MEDS ORDERED: TIMOLOL 0.5% OPHTH DROPS OPTH ONE (11:31)
[2022-02-06] MEDS ORDERED: VANCOMYCIN OPHTH (TOPICAL) 10 MG/ML SYRINGE TOP ONE (11:31)
[2022-02-06] MEDS ORDERED: PROPARACAINE 0.5% OPHTH DROPS 15 ML EACHEYE ONE (11:31)
[2022-02-06] MEDS ORDERED: EPINEPHrine 1 MG/ML AMP IR ONE (11:31)
[2022-02-06] MEDS ORDERED: BSS/LIDOCAINE/EPINEPHRINE 1 ML SYRINGE IO ONE (11:31)
[2022-02-06] MEDS ORDERED: BRIMONIDINE 0.2% OPHTH DROPS 5 ML OPTH ONE (11:31)
[2022-02-06] MEDS ORDERED: TRIAMCIN/MOXIFLOX OPHTHALMIC 0.6 ML VIAL IO ONE (11:31)
[2022-02-06] MEDS ORDERED: EPINEPHrine 1 MG/ML AMP ONE (11:32)
--- NOTE | 2022-02-06 11:56 | OPERATIVE REPORT ---
Operative Report - Other Other Information/Narrative: Date of Surgery: 02/06/22 Preop Dx: Visually significant cataract right eye. This was the first cataract surgery. Postop Dx: Same Procedure: Phacoemulsification with posterior chamber intraocular lens implant right eye Surgeon: Dr. Noah Lo Anesthesia: Monitored anesthesia care Complications: None Operative Indications: This is a 76-year-old M with progressive vision loss in the right eye due to 4+ nuclear sclerotic and vacuolar cataract. Best corrected visual acuity was 20/40 with glare to 20/100 vision in the right eye. Indications for surgery were: - Overall decrease in vision - Difficulty seeing words on a computer screen - Difficulty reading - Difficulty seeing words, closed captions, or game scores on TV - Difficulty seeing street signs - Difficulty driving in low light or at night - Difficulty driving at night because of headlights from other vehicles The patient was consented at length concerning the risks and benefits of cataract surgery after which the patient expressed a desire to proceed with surgery. Operative Procedure: The patient was taken into OR#3 and placed under monitored anesthesia care. A surgical time-out was conducted confirming correct patient, correct procedure, and correct surgical site. The patient was given topical anesthesia and then prepped and draped in the usual sterile fashion. The eye was entered at the 6 and 3 oclock positions. Intracameral Shugarcaine was injected into the anterior chamber followed by a dispersive viscoelastic. A continuous-tear curvilinear capsulorhexis was performed. The nucleus was hydrodissected and phacoemulsified. The cortex was evacuated using automated infusion and aspiration. A cohesive viscoelastic was injected into the capsular bag and a 19.5 diopter intraocular lens was inserted into the bag. Infusion and aspiration were used to evacuate the viscoelastic materials from the eye. The wounds were hydrated and the eye inflated to physiologic pressure using balanced salt solution. Approximately 0.25ml of a mixture of triamcinolone and moxifloxacin was injected trans-sclerally into the vitreous in the inferotemporal quadrant using a 30 gauge cannula. An additional 0.55ml of a mixture of triamcinolone moxifloxacin was injected subconjunctivally in the superior quadrant for infection and inflammation prophylaxis. Wound integrity was checked with Weck-Alicia sponges. The patient was taken from the operating room in good condition and given post-op instructions.
[2022-02-06 11:57] VITALS: BP 107/59
--- NOTE | 2022-02-06 14:44 | ANESTHESIA POST OP EVALUATION ---
Anesthesia Post Eval - Post Anesthesia Eval Vitals: Last Vital Signs Temp 0 C L 02/06/22 11:56 Pulse 87 02/06/22 11:56 Resp 24 02/06/22 11:56 BP 107/59 L 02/06/22 11:56 Pulse Ox 100 02/06/22 11:56 CV Function Including HR & BP: Stable Pain Control: Satisfactory Nausea & Vomiting: Negative Mental Status: Baseline Respiratory Status: Airway Patent Hydration Status: Satisfactory Anesthesia Complications: None
== END 2022-02-06 09:34 | disposition home or self-care (01) ==
LOC: SDS 09:33
PROVIDERS: ATTEND Ophthalmology
DX: H25.811 Combined forms of age-related cataract, right eye (principal)
CPT/HCPCS: 66984; A9270; J3490; J7120

== ENCOUNTER 2023-06-24 11:23 | Outpatient (CLI) | payer MEDICARE | END 2023-06-24 11:24 | disposition critical access hospital (66) | LOC: EMS 11:23 | DX: R53.1 Weakness (principal); S71.102A Unspecified open wound, left thigh, initial encounter; X58.XXXA Exposure to other specified factors, initial encounter | CPT/HCPCS: A0425; A0427 ==

== ENCOUNTER 2023-06-24 12:02 | Emergency (ER) | payer MEDICARE ==
[2023-06-24] MEDS ORDERED: SODIUM CHLORIDE 0.9% 1,000 ML IV STA (12:25)
[2023-06-24 13:01] LABS: INR 1.5 (0.8-1.2)
[2023-06-24 13:02] LABS: BASOPHILS % (AUTO) 0.1 %; EOSINOPHILS % (AUTO) 0.2 %; LYMPHOCYTES # (AUTO) 1.3 10^3/uL (1.5-3.5); LYMPHOCYTES % (AUTO) 6.5 %; MEAN CORPUSCULAR HGB CONC 24.8 g/dL (32.0-36.0); MEAN CORPUSCULAR VOLUME 60.6 fL (80.0-94.0); MEAN PLATELET VOLUME 8.6 fL (7.4-11.4); MONOCYTES # (AUTO) 1.1 10^3/uL (0.0-1.0); MONOCYTES % (AUTO) 5.7 %; NEUTROPHILS # (AUTO) 17.2 10^3/uL (1.5-6.6); PLT - PLATELET COUNT 468 10^3/uL (130-450); RED BLOOD COUNT 1.93 10^6/uL (4.70-6.10); WHITE BLOOD COUNT 19.8 x10^3/uL (4.8-10.8)
[2023-06-24 13:06] LABS: HCT - HEMATOCRIT 11.7 % (42.0-52.0); HGB - HEMOGLOBIN 2.9 g/dL (14.0-18.0)
[2023-06-24 13:33] LABS: ALBUMIN 2.6 g/dL (3.2-5.5); ALBUMIN/GLOBULIN RATIO 0.8 (1.0-2.2); ALKALINE PHOSPHATASE 85 IU/L (42-121); ALT ALANINE AMINOTRANSFERASE 6 IU/L (10-60); AST ASPARTATE AMINOTRANSFERASE 7 IU/L (10-42); BILIRUBIN,TOTAL 0.2 mg/dL (0.2-1.0); BUN - BLOOD UREA NITROGEN 23 mg/dL (6-20); CALCIUM 8.4 mg/dL (8.5-10.3); CARBON DIOXIDE - CO2 25 mmol/L (21-32); CHLORIDE 109 mmol/L (101-111); CREATININE 0.9 mg/dL (0.6-1.3); GFR - MDRD 82 (>89); GLUCOSE 118 mg/dL (74-104); POTASSIUM 3.6 mmol/L (3.5-4.5); SODIUM 141 mmol/L (135-145); TOTAL PROTEIN 5.8 g/dL (6.4-8.9)
[2023-06-24 13:34] LABS: LIPASE < 10 U/L (11-82)
[2023-06-24 13:46] LABS: SLIDE REVIEW? Indicated
[2023-06-24 13:47] LABS: PLATELET ESTIMATE, MANUAL INCREASED (>450,000) (NORMAL); PLATELET MORPHOLOGY NORMAL APPEARANCE (NORMAL)
--- NOTE | 2023-06-24 15:38 | CT Report ---
PROCEDURE: CHEST W INDICATIONS: fatigue, weight loss CONTRAST: 100mL Omni 300 TECHNIQUE: After the administration of intravenous contrast, 1 mm axial images were acquired from the pulmonary apices through the posterior costophrenic angles. Axial 5 mm soft tissue kernel reconstructions were performed as well as 8 mm axial MIP and coronal and sagittal 5 mm reformations. For radiation dose reduction, the following was used: automated exposure control, adjustment of mA and/or kV according to patient size. COMPARISON: 12/27/2021 FINDINGS: Image quality: Excellent. Lungs and pleura: Peripheral reticulation, scattered minor groundglass opacities peripherally, and oc casional patchy consolidations with irregular reticulation confluent at the right posterior costophre juliet sulcus and left medial lung base. Moderate intralobular septal thickening at the right lower lobe . Coarse calcification at the left medial lung base. Airway opacification distally in the lingula. rways are otherwise patent.. No bronchiectasis or bronchial wall thickening. No pleural effusions. No pneumothorax. No suspicious pulmonary nodules which require follow up. Mediastinum: Heart size is normal with mild coronary calcification. No pericardial effusion. No large vessel abnormality. No mediastinal adenopathy by size criteria. Normal esophagus. Chest wall and lower neck: Thyroid is unremarkable. No axillary or supraclavicular adenopathy by size . Bones: No aggressive osseous abnormality. Upper Abdomen: Dictated separately. IMPRESSION: 1. Bilateral lower lobe reticulation and airspace opacity, improved in severity compared to the prior exam, and most suggestive of an infectious or inflammatory process. No specific features. Chronic as piration changes and should be considered. 2. No other abnormalities in the chest. Reviewed by: Marta Cheek MD on 06/24/2023 3:37 PM PST Approved by: Marta Cheek MD on 06/24/2023 3:37 PM PST Station ID: [id number]
--- NOTE | 2023-06-24 15:45 | CT Report ---
PROCEDURE: ABDOMEN/PELVIS W INDICATIONS: weight loss, weakness CONTRAST: 100mL Omni 300 TECHNIQUE: After the administration of intravenous contrast, 5 mm thick sections acquired from the diaphragms to the symphysis. 5 mm thick coronal and sagittal reformats were acquired. For radiation dose reducti on, the following was used: automated exposure control, adjustment of mA and/or kV according to brooklynn ent size. COMPARISON: 12/27/2021 FINDINGS: Image quality: Excellent. Lung bases and heart: Dictated separately Liver: No solid mass. Gallbladder and biliary tree: Normal gallbladder. Mild intrahepatic biliary dilatation present diffus joon. Extrahepatic common duct is normal caliber. Spleen: No splenomegaly. Pancreas: Diminutive pancreas with occasional calcifications. No ductal dilatation. Adrenals: No adrenal nodule. Kidneys and ureters: No hydronephrosis. Punctate nonobstructing intrarenal calculi bilaterally in mid and lower poles. No hydroureter. Bowel and peritoneum: Moderately large quantity of solid stool present in the rectum with mild superi or rectal wall thickening. Increased quantity of solid stool present throughout the remainder the col on. Small bowel loops are largely decompressed. The stomach contains fluid. Lymph nodes: No central or retroperitoneal adenopathy. Vessels: No infrarenal aortic aneurysm. PELVIS Reproductive organs: Unremarkable. Bladder: Moderate circumferential urinary bladder wall thickening. Pelvic lymph nodes: No pelvic adenopathy by size criteria. Bones: No suspicious bone lesion. Prominent bilateral acetabular spurring. Lower lumbar facet arthrop athy. Other: No significant ventral or inguinal hernia. IMPRESSION: 1. Rectal obstipation. 2. Urinary bladder wall thickening suggesting cystitis, acute, chronic, infectious, or sterile. Corre late with UA. 3. Slightly diminutive pancreas with calcifications may indicate remote chronic pancreatitis. Reviewed by: Marta Cheek MD on 06/24/2023 3:43 PM PST Approved by: Marta Cheek MD on 06/24/2023 3:43 PM PST Station ID: [id number]
--- NOTE | 2023-06-24 19:11 | ED Physician Documentation ---
History of Present Illness - Stated complaint Stated Complaint: WEAKNESS - Chief complaint Chief Complaint: Wound - History obtained from History obtained from: Patient, Family, EMS - Additonal information Additional information: Patient comes to the emergency department chief complaint of increasing generalized weakness for months. He states that he has noticed it since the summer and that he just seems to be getting worse and worse. 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 However, he has been so weak that he has not even been able to get up to do this. He states his has been having to do everything form around the house. He states he feels short of breath and like he can hardly lift his arms and legs or even get up to walk. The patient states he does not have a doctor and has not for the last 50 years. He was seen for unknown reasons about 2 years ago at which time his w ound, which had grown quite large, it was noted. Its not clear exactly what the treatment plan was, but the patient did not follow-up. He states that he is not really sure how the wound started but that he had a small lesion that just gradually got bigger. Now encompasses the entire anterior, lateral, and medial portions of his left thigh. No fevers or chills. No nausea or vomiting. No body aches. Patient states he has not had much appetite and has barely been eating or drinking anything these last couple of days. No other complaints at this time. PD PAST MEDICAL HISTORY - Past Medical History Past Medical History: Yes Cardiovascular: None Respiratory: None Neuro: None Endocrine/Autoimmune: None GI: None : None HEENT: Chronic vision loss Psych: None Musculoskeletal: Osteoarthritis Derm: None - Past Surgical History Past Surgical History: No HEENT: Cataracts - Present Medications Home Medications: Ambulatory Orders Medication Instructions Recorded Confirmed No Known Home Medications 02/06/22 06/24/23 - Allergies Allergies/Adverse Reactions: Allergies Allergy/AdvReac Type Severity Reaction Status Date / Time No Known Drug Allergies Allergy Verified 03/26/22 12:05 - Social History Does the pt smoke?: No Smoking Status: Never smoker Does the pt drink ETOH?: Yes Does the pt have substance abuse?: No - Immunizations Immunizations are current?: No Immunizations: TDAP >10years/unknown, Other immun not current - POLST Patient has POLST: No PD ED PE NORMAL - Vitals Vital signs reviewed: Yes - General General: Alert and oriented X 3, No acute distress, Well developed/nourished - HEENT HEENT: Atraumatic, PERRL, EOMI, Moist mucous membranes - Neck Neck: Supple, no meningeal sign - Cardiac Cardiac: No murmur, Strong equal pulses, Other (Mildly tachycardic.) - Respiratory Respiratory: No respiratory distress, Clear bilaterally - Abdomen Abdomen: Soft, Non tender, Non distended - Rectal Rectal: Other (Normal rectal exam, light brown stool, no gross blood. Social Work Administrator nurse Vida present.) - Derm Derm: Warm and dry, Other - Extremities Extremities: No deformity - Neuro Neuro: Alert and oriented X 3 - Psych Psych: Normal mood, Normal affect - Free text exam Free text exam: 24 cm x 22 cm anterior, medial, and lateral left thigh ulceration, stage III, with multiple nodules and strong foul, necrotic smell. No drainage. No erythema, induration, or fluctuance surrounding the the wound margins. Inferior wound margin reaches to the superior border of the patient's knee. Limited range of motion of knee secondary to inflexibility of the ulcerated tissue, but no tenderness of the ulcerated area or surrounding tissue. Results - Vitals Vitals: Vital Signs - 24 hr 06/24/23 06/24/23 06/24/23 12:17 13:05 14:02 Temperature 36.4 C L Heart Rate 129 H 99 Heart Rate [ Monitoring electrodes] Respiratory 20 17 17 Rate Blood Pressure 112/58 L 106/69 103/51 L Blood Pressure [Left Brachial artery] O2 Saturation 98 99 06/24/23 06/24/23 06/24/23 14:09 15:45 16:34 Temperature 36.3 C L Heart Rate 93 80 Heart Rate [ 86 Monitoring electrodes] Respiratory 17 16 16 Rate Blood Pressure 105/54 L Blood Pressure 90/63 [Left Brachial artery] O2 Saturation 98 98 97 06/24/23 16:55 Temperature 36.4 C L Heart Rate Heart Rate [ 89 Monitoring electrodes] Respiratory 16 Rate Blood Pressure Blood Pressure 100/53 L [Left Brachial artery] O2 Saturation 99 Oxygen O2 Source Room air - Labs Labs: Microbiology 06/24/23 16:27 Occult Blood - Final Stool Laboratory Tests 06/24/23 06/24/23 06/24/23 12:47 12:47 12:47 WBC 19.8 H RBC 1.93 L Hgb 2.9 L* Hct 11.7 L* MCV 60.6 L MCH 15.0 L MCHC 24.8 L RDW 21.0 H Plt Count 468 H MPV 8.6 Neut # (Auto) 17.2 H Lymph # (Auto) 1.3 L Fisher # (Auto) 1.1 H Eos # (Auto) 0.0 Baso # (Auto) 0.0 Absolute Nucleated RBC 0.00 Nucleated RBC % 0.0 Manual Slide Review Indicated Platelet Estimate INCREASED (>450,000) Platelet Morphology NORMAL APPEARANCE RBC Morph Micro Appear 1+ OVALOCYTES PT INR Sodium 141 Potassium 3.6 Chloride 109 Carbon Dioxide 25 Anion Gap 7.0 BUN 23 H Creatinine 0.9 Estimated GFR (MDRD) 82 L Glucose 118 H Lactic Acid Calcium 8.4 L Total Bilirubin 0.2 AST 7 L ALT 6 L Alkaline Phosphatase 85 Total Protein 5.8 L Albumin 2.6 L Globulin 3.2 Albumin/Globulin Ratio 0.8 L Lipase < 10 L Blood Type O POSITIVE Blood Type Recheck Antibody Screen NEGATIVE Crossmatch IS Only See Detail 06/24/23 06/24/23 06/24/23 12:47 13:46 13:46 WBC RBC Hgb Hct MCV MCH MCHC RDW Plt Count MPV Neut # (Auto) Lymph # (Auto) Fisher # (Auto) Eos # (Auto) Baso # (Auto) Absolute Nucleated RBC Nucleated RBC % Manual Slide Review Platelet Estimate Platelet Morphology RBC Morph Micro Appear PT 16.0 H INR 1.5 H Sodium Potassium Chloride Carbon Dioxide Anion Gap BUN Creatinine Estimated GFR (MDRD) Glucose Lactic Acid 1.9 Calcium Total Bilirubin AST ALT Alkaline Phosphatase Total Protein Albumin Globulin Albumin/Globulin Ratio Lipase Blood Type Blood Type Recheck O POSITIVE Antibody Screen Crossmatch IS Only - Rads (name of study) CT chest with contrast Relevant Findings:: Final report received, See rad report (No acute findings) CT abdomen pelvis With contrast Relevant Findings:: Final report received, See rad report (No acute findings) PD Medical Decision Making - ED course Complexity details: reviewed results, re-evaluated patient, considered differential, d/w patient, d/w family ED course: The patient was worked up with labs and CTs of the chest abdomen and pelvis. Laboratory studies showed hemoglobin of 2.9 which explained the patient's extreme pallor and extreme fatigue. He also had a white blood cell count of 19.8. His lactic acid level was normal and INR was 1.5. CTs were unremarkable. I did consult Dr. Mclean of general surgery for the patient's leg wound and she stated that this would likely need to go to a burn center for biopsy, debridement, and grafting. Malignancy, potentially basal cell carcinoma, as suspected. The wound was photographed and pictures were sent to [facility]. At this point in time, consultation is pending. The patient in the meantime has been started on The first of 3 units of packed red blood cells for his low hemoglobin. Rectal exam showed light brown stool without any gross blood or evidence of melena. I have discussed the plan with both the patient's and the patient, who has remained stable throughout his stay in the emergency department. He has been given IV fluids and has eaten part of a sandwich here. At this point in time, I am awaiting consultation with [facility] regarding the patient's wound to see if they would like to have the patient transferred or try to initiate treatment of this as an outpatient. The patient signed out to Dr. Sykes at change of shift, pending conversation with and final disposition. Departure - Departure Clinical Impression: Leg ulcer, left Qualifiers: Non-pressure ulcer stage: unspecified non-pressure ulcer stage Qualified Code(s): L97.929 - Non-pressure chronic ulcer of unspecified part of left lower leg with unspecified severity Profound anemia Qualifiers: Anemia type: unspecified type Qualified Code(s): D64.9 - Anemia, unspecified Forms: PCP List
[2023-06-24] MEDS ORDERED: iohexoL-300 100 ML VIAL IVP ONE (19:45)
--- NOTE | 2023-06-24 20:07 | ED Physician Documentation ---
ED Addendum - Addendum Addendum: 06/24/23 20:03 d/w transfer center - Dr. Jesus, gen surg attending at recommends outpatient f/u for biopsy of possible BCC and potential follow up plan for skin grafting for eventual treatment. If there is indeed no active surgical infection, as our attending surgeon Dr. Mclean believes, he states this can be biopsied as an outpatient and patient can also follow up with wound clinic. Plan is to d/w our telehealth hospitalist team for admission here for serial transfusions/repeat bloodwork. 06/24/23 20:35 06/24/23 21:05 I d/w telehealth Dr. Johnson that recommends admission here for anemia and outpatient workup, but telehealth hospitalist rejected patient for admission at [facility]. Dr Johnson states he is too medically complex for our capabilities and needs hospital with GI and with capacity to work up and manage LE wound. He also was concerned about patient's leukocytosis, strongly recommending antibiotics. Dr. Mclean and Dr. Anderson did not believe the wound site to be infected and I myself see no florid cellulitis. Believe a lot of this is chronic but will order cultures and start antibiotics that we can stop if cultures come back negative. 06/24/23 23:23 d/w Dr. Mclean who recommends to keep working on transfer. She states the patient's wound care needs are going to exceed what we usually are able to do here. Best if he can go to a bigger facility. Potential to do a biopsy if he ends up boarding here for multiple days. Needs to get plugged in with outpatient wound care and Dr. Mclean is not sure how long it will take to get him in to wound clinic. Plan to continue calling all [facility] with larger facilities/capabilities. Possible opening at [facility]. [facility] has a wound care program but does not have GI. 06/25/23 07:00 No beds overnight. patient endorsed to incoming daytime ED MD at 7am shift change awaiting transfer.
[2023-06-24] MEDS ORDERED: PIPERACILLIN/TAZOBACTAM 3.375 GM in SODIUM CHLORIDE 0.9% MINIBAG 100 ML IV STA ×2 (21:10→22:06)
[2023-06-24] MEDS ORDERED: VANCOMYCIN 1 GM VIAL ONE (21:38)
[2023-06-24] MEDS ORDERED: VANCOMYCIN INJ 1 GM in SODIUM CHLORIDE 0.9% 250 ML IV SCH (22:00)
[2023-06-24 23:32] LABS: HCT - HEMATOCRIT 19.9 % (42.0-52.0); HGB - HEMOGLOBIN 5.7 g/dL (14.0-18.0)
[2023-06-25 04:11] LABS: HCT - HEMATOCRIT 23.1 % (42.0-52.0)
[2023-06-25 04:14] LABS: HGB - HEMOGLOBIN 6.9 g/dL (14.0-18.0)
[2023-06-25] MEDS: PIPERACILLIN/TAZOBACTAM 3.375 GM in SODIUM CHLORIDE 0.9% MINIBAG 100 ML IV SCH ×2 (04:45→13:55)
[2023-06-25 07:20] LABS: BASOPHILS # (AUTO) 0.1 10^3/uL (0.0-0.1); BASOPHILS % (AUTO) 0.3 %; EOSINOPHILS # (AUTO) 0.2 10^3/uL (0.0-0.7); EOSINOPHILS % (AUTO) 0.9 %; HCT - HEMATOCRIT 23.3 % (42.0-52.0); HGB - HEMOGLOBIN 7.1 g/dL (14.0-18.0); LYMPHOCYTES # (AUTO) 1.2 10^3/uL (1.5-3.5); LYMPHOCYTES % (AUTO) 7.8 %; MEAN CORPUSCULAR HEMOGLOBIN 22.3 pg (27.0-31.0); MEAN CORPUSCULAR HGB CONC 30.5 g/dL (32.0-36.0); MEAN CORPUSCULAR VOLUME 73.3 fL (80.0-94.0); MEAN PLATELET VOLUME 8.3 fL (7.4-11.4); MONOCYTES # (AUTO) 0.9 10^3/uL (0.0-1.0); MONOCYTES % (AUTO) 5.9 %; NEUTROPHILS # (AUTO) 13.4 10^3/uL (1.5-6.6); NEUTROPHILS % (AUTO) 84.5 %; PLT - PLATELET COUNT 429 10^3/uL (130-450); RED BLOOD COUNT 3.18 10^6/uL (4.70-6.10); WHITE BLOOD COUNT 15.9 x10^3/uL (4.8-10.8)
[2023-06-25 07:22] LABS: SLIDE REVIEW? Indicated
[2023-06-25 07:28] LABS: ALBUMIN 2.4 g/dL (3.2-5.5); ALBUMIN/GLOBULIN RATIO 0.8 (1.0-2.2); BILIRUBIN,TOTAL 0.8 mg/dL (0.2-1.0); CREATININE 0.8 mg/dL (0.6-1.3); POTASSIUM 3.6 mmol/L (3.5-4.5); TOTAL PROTEIN 5.4 g/dL (6.4-8.9)
[2023-06-25 08:05] LABS: PLATELET MORPHOLOGY NORMAL APPEARANCE (NORMAL)
[2023-06-25 08:06] LABS: PLATELET ESTIMATE, MANUAL NORMAL (130-450,000) (NORMAL)
--- NOTE | 2023-06-25 14:25 | ED Physician Documentation ---
ED Addendum - Addendum Addendum: 06/25/23 14:24 Patient is in stable condition today. A wound consult was requested. We are still looking for placement. I did speak with Dr. Cabrera, hospitalist at [facility] in [place] who does accept in transfer but request that I speak with GI. Will speak with GI and plan on transferring after that. 06/25/23 16:49 [facility] does accept in transfer, COBRA forms completed. Patient will be transferred. 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
[2023-06-25 18:09] VITALS: BP 101/52; O2SAT 94
== END 2023-06-25 18:03 | disposition short-term general hospital (02) ==
LOC: EDUNIT# → ED 12:02
DX: L97.129 Non-pressure chronic ulcer of left thigh with unspecified severity (principal); D64.9 Anemia, unspecified; Z20.822 Contact with and (suspected) exposure to COVID-19
CPT/HCPCS: 36415; 36430; 71260; 74177; 80053; 82272; 83605; 83690; 85014; 85018; 85025; 85610; 86850; 86900; 86901; 86920; 87040; 87070; 87077; 87181; 87205; 87635; 96365; 96366; 96367; 99285; J3370; P9016; Q9967; 82270